=== PATIENT | female | born 1985 | race Caucasian/White ===

== ENCOUNTER 2024-04-05 13:52 | Emergency (ER) | payer BC ==
[~2024-04-05] VITALS: Ht 167.6 cm; Wt 93.9 kg
[2024-04-05] MEDS ORDERED: FAMOTIDINE 50 ML IV ONE (14:50)
[2024-04-05] MEDS ORDERED: SODIUM CHLORIDE 0.9% 1,000 ML IV ONE (14:50)
[2024-04-05] MEDS ORDERED: MORPHINE Sulfate 2 MG/ML SYR IV ONE (14:50)
[2024-04-05] MEDS ORDERED: Ondansetron Hydrochloride 4 MG/2 ML VIAL IV ONE (14:50)
[2024-04-05 15:06] LABS: BASO # 0.1 10*3/uL (0.0-0.1); BASO % 0.5 % (0.0-1.0); EOS % 0.2 % (1.0-4.0); HEMATOCRIT 42.6 % (37.0-47.0); MEAN CELL VOLUME 86.4 fl (81.0-99.0); MEAN CORPUSCULAR HGB CONC 33.6 g/dl (33.0-37.0); MEAN PLATELET VOLUME 8.9 fl (9.6-12.3); MONO # 0.6 10*3/uL (0.1-1.0); MONO % 6.2 % (3.0-9.0); NEUT # 7.5 10*3/uL (2.3-7.9); NEUT % 73.1 % (47.0-73.0); PLATELET COUNT AUTOMATED 343 10*3/uL (130-400); RED BLOOD COUNT 4.93 10*6/uL (4.10-5.10); RED CELL DISTRI WIDTH 12.7 % (0-14.5); WHITE BLOOD COUNT 10.3 10*3/uL (4.8-10.8)
[2024-04-05 15:32] LABS: ALKALINE PHOSPHATASE 72 U/L (46-116); BUN 9 mg/dl (9-23); CHLORIDE 106 mmol/L (98-107); LIPASE 26 U/L (12-53); POTASSIUM 4.1 mmol/L (3.4-5.1); SGPT/ALT 7 U/L (5-49); TOTAL PROTEIN 7.1 gm/dL (6.0-8.0)
[2024-04-05 15:34] LABS: B-hCG (QUALITATIVE) NEGATIVE (NEGATIVE)
[2024-04-05 15:47] LABS: BILIRUBIN Negative (Negative); BLOOD Negative (Negative); CLARITY Clear (Clear); COLOR Yellow (Yellow); GLUCOSE Negative (Negative); KETONE 1+ (Negative); LEUKO ESTERASE Negative (Negative); NITRITE Negative (Negative); PH 5.5 (4.5-8.0); SPECIFIC GRAVITY >= 1.030 (1.001-1.030); UROBILINOGEN 0.2 E.U./dl (0.0-1.0)
[2024-04-05 15:55] LABS: EPITHELIAL CELLS 16-20; MUCOUS 2+
[2024-04-05 15:56] LABS: WBC 0-2 wbc/hpf (0-5)
[2024-04-05] MEDS ORDERED: PEPCID20 MG PO (17:13)
[2024-04-05] MEDS ORDERED: COLACE 2-IN-11 EACH PO (17:13)
== END 2024-04-05 17:43 | disposition home or self-care (01) ==
LOC: ED 13:52
PROVIDERS: Emergency Medicine
DX: K29.70 Gastritis, unspecified, without bleeding (principal); K59.00 Constipation, unspecified; R11.2 Nausea with vomiting, unspecified

== ENCOUNTER → 2024-04-14 | Outpatient (CLI) | payer BC ==
[~2024-04-14] MED LIST: COLACE 2-IN-11 EACH PO; PEPCID20 MG PO
[2024-04-14 12:20] LABS: VITAMIN D, 25-HYDROXY 23.3 ng/mL (30-100)
== END | disposition home or self-care (01) ==
LOC: LAB 09:04 → RESCLI 09:04
PROVIDERS: ATTEND Internal Medicine
DX: E66.9 Obesity, unspecified (principal)

== ENCOUNTER → 2024-08-05 | Outpatient (CLI) | payer BC | END | disposition home or self-care (01) | LOC: RAD 17:22 | PROVIDERS: ATTEND Nurse Practitioner | DX: R19.4 Change in bowel habit (principal); I87.8 Other specified disorders of veins; M48.8X6 Other specified spondylopathies, lumbar region ==